=== PATIENT | male | born 1965 | race Caucasian/White ===

== ENCOUNTER 2017-01-03 17:52 | Emergency (ER) | payer MEDICAID ==
[~2017-01-03 17:52] MED LIST: ACCUPRIL40 M1 PO; ACCUPRIL40 MG PO; APIDRA100 U/M SQ; ASPIRIN EC81 MG PO; AVANDIA8 MG PO; BYDUREON; CRESTOR10 MG PO; FENOFIBRATE145 M2 PO; FLOMAX0.4 M1 PO; GLUCOPHAGE1000 M1 PO; GLUCOPHAGE1000 MG PO; HUMALOG; HUMALOG100 UNITS/ SC; HUMULIN R100 U/ML SQ; HUMULIN R100 UNITS/ SC; HYDROCHLOROTHIA25 MG PO; INVOKANA300 MG PO; KEFLEX500 M4 PO; KLOR-CON M1010 MEQ PO; KLOR-CON M2020 ME1 PO; KLOR-CON20 MEQ PO; LANTUS100 U/ML SC; LASIX40 MG PO; LASIX80 M1 PO; LASIX80 MG PO; LAVAZA; LAVAZA PO; LEVEMIR100 UNITS/ SC; LIPITOR10 M1 PO; LIPITOR40 M1 PO; LOW DOSE ASPIRI81 M3 PO; METOLAZONE2.5 MG PO; NEURONTIN300 M1 PO; NORCO 5-325 TA1 EACH PO; SULFAMYLON SOL250 M1; SULFAMYLON60 GM; TOPROL XL100 M1 PO; TOPROL XL100 MG PO; TRESIBA FL100 UNIT/1 SC; TRICOR145 M2 PO; TRIGLIDE160 M1 PO
[2017-01-03] MEDS ORDERED: NAPROSYN500 M1 PO (18:57)
[2017-06-29] MEDS ORDERED: [UNRECOGNIZED DRUG - REMARK] (23:16)
[2017-06-30] MEDS ORDERED: KEFLEX500 M4 PO (01:23)
[2017-07-16] MEDS ORDERED: DIFLUCAN100 M1 (10:42)
[2017-07-16] MEDS ORDERED: DIFLUCAN100 M1 PO (10:43)
[2017-07-16] MEDS ORDERED: NYSTOP60 GM TOP (10:44)
== END 2017-01-03 19:06 ==
LOC: EDMED 17:52
DX: M75.92 Shoulder lesion, unspecified, left shoulder (principal); M54.12 Radiculopathy, cervical region; E11.9 Type 2 diabetes mellitus without complications; I10 Essential (primary) hypertension; Z79.4 Long term (current) use of insulin; Z79.899 Other long term (current) drug therapy